=== PATIENT | female | born 1970 | race Caucasian/White ===

== ENCOUNTER 2018-04-16 09:57 | Inpatient (IN) | payer OTHER ==
[~2018-04-16] VITALS: Ht 172.7 cm; Wt 86.2 kg
[2018-04-18] MEDS ORDERED: MEDROLPACK PO (12:24)
[2018-04-18] MEDS ORDERED: LEVAQUIN750 MG PO (12:24)
== END 2018-04-18 14:53 | disposition home or self-care (01) | DRG 194 ==
LOC: ER 09:57 → SEC-K 17:53 → SURG 22:48
PROC: 3E0F7GC Introduction of Other Therapeutic Substance into Respiratory Tract, Via Natural or Artificial Opening (ICD-10-PCS; principal; 2018-04-16)
PROC: 4A033R1 Measurement of Arterial Saturation, Peripheral, Percutaneous Approach (ICD-10-PCS; 2018-04-16)
PROC: BW24ZZZ Computerized Tomography (CT Scan) of Chest and Abdomen (ICD-10-PCS; 2018-04-16)
DX: J18.9 Pneumonia, unspecified organism (principal); J47.1 Bronchiectasis with (acute) exacerbation; E86.0 Dehydration